=== PATIENT | male | born 1955 | race Caucasian/White ===

== ENCOUNTER 2017-10-31 06:51 | Inpatient (IN) | payer OTHER ==
[~2017-10-31] VITALS: Ht 188 cm; Wt 142.0 kg
[~2017-10-31 06:51] MED LIST: MELOXICAM PO; TYLENOL WITH C1 EAC1 PO
[2017-10-31] MEDS ORDERED: CEFAZOLIN SOD 2 GM/D5W 50ML 50 ML IV ONE (07:19)
[2017-10-31] MEDS ORDERED: GABAPENTIN 300 MG CAP ONE (07:19)
[2017-10-31] MEDS ORDERED: DEXAMETHASONE SOD PHOS 10 MG/1 ML VIAL ONE (07:19)
[2017-10-31] MEDS ORDERED: CELECOXIB 200 MG CAP PO ONE (07:29)
[2017-10-31] MEDS ORDERED: ROPIVACAINE 246.25 MG, EPINEPHRINE HCL 1:1000 0.5 MG, CLONIDINE HCL 0.08 MG, KETOROLAC ... INJ ONE ×5 (07:30)
[2017-10-31] MEDS ORDERED: MUPIROCIN 2% OINT 22 GM TUBE ONE (08:04)
[2017-10-31] MEDS ORDERED: TRANEXAMIC ACID 1,000 MG/10 ML ML ONE (08:04)
[2017-10-31] MEDS ORDERED: BACITRACIN 50,000 UNIT VIAL ONE (08:05)
[2017-10-31] MEDS: SODIUM CHLORIDE 0.9% 1000ML 1,000 ML IV SCH ×2 (10:52→20:52)
[2017-10-31] MEDS ORDERED: ACETAMINOPHEN 650 MG SUPP PR PRN (11:00)
[2017-10-31] MEDS ORDERED: HYDROCODONE/APAP 5MG-325MG TAB PO PRN (11:00)
[2017-10-31] MEDS ORDERED: DIPHENHYDRAMINE HCL INJ 50 MG/ML VIAL IM/IV PRN (11:00)
[2017-10-31] MEDS ORDERED: KETOROLAC TROMETHAMINE 30 MG/ML VIAL IV PRN (11:00)
[2017-10-31] MEDS ORDERED: ONDANSETRON HCL INJ 2 MG/ML VIAL IV PRN (11:00)
[2017-10-31] MEDS ORDERED: DOCUSATE SODIUM 100 MG CAP PO PRN (11:00)
[2017-10-31] MEDS ORDERED: PROMETHAZINE HCL (IM) 25 MG/ML VIAL IM PRN (11:00)
--- NOTE | 2017-10-31 11:45 | Operative Report ---
DATE OF PROCEDURE: October 31, 2017 TIRE MOLD ENGRAVER: Venkat Herman PA-C The patient was brought to the operating room for induction of anesthesia. Throughout this case, my PA's assistance was necessary for retraction of soft tissue and positioning of the extremity. This allows for efficient and technically successful execution of the operation and is considered medically necessary. PREOPERATIVE DIAGNOSIS: Osteoarthritis, left knee. POSTOPERATIVE DIAGNOSIS: Osteoarthritis, left knee. PROCEDURE: Left total knee arthroplasty. INDICATIONS: The patient is a 62-year-old gentleman who has advanced arthritis of both knees. He has failed extensive conservative management and wishes to proceed with a left total knee replacement. The risks and benefits, the implants, the recovery, and the added challenges due to his weight have been explained to the patient. He states he understands and wishes to proceed. DESCRIPTION OF PROCEDURE: The patient was brought to the operating room and placed under general anesthetic. He received prophylactic antibiotics, a regional block, and tranexamic acid in the holding area. His left lower extremity was prepped and draped in a sterile manner. Some added time and personnel was necessary due to the patient's weight of 280 pounds. His left lower extremity was exsanguinated and a proximal tourniquet was inflated to 350 mmHg. An anterior approach with a medial parapatellar arthrotomy was performed. Soft tissue releases were performed to bring the knee up into flexion with the patella everted. Meniscal remnants, marginal osteophytes in the remnants of the cruciate ligaments were excised. A Siegel and Nephew Deyanira II posterior stabilized knee system was used. An extramedullary cutting guide was used to resect the proximal tibia. A +2 cut was made due to the patient's flexion contracture and limited flexion. The tibial baseplate was a size #7. The central fin punch was impacted and attention was directed towards the distal femur. An intramedullary cutting guide was used to resect the distal femur in 6 degrees of valgus and rotation referenced off of a combination of landmarks including Brandon line, the epicondylar axis, and the posterior condyles. The femoral component was a size #8. The anterior and posterior chamfer cuts were made. Trial reductions were performed. An 11 mm ultra-congruent tibial insert provided optimal soft tissue balancing in flexion and extension. The patella was resurfaced with a 35 mm x 9 mm patellar button. The thickness of the patella was checked before and after resurfacing and was right at 25 mm. Patellar tracking was noted to be concentric. The trial implants were removed. A 100 mL premixed pericapsular KENYA injection was placed into the soft tissue. The knee was thoroughly irrigated with a Pulsavac. The components were cemented into place using a single mix of PALACOS cement, pre-loaded with gentamicin. Care was taken to remove extravasated cement. The wound was further irrigated with a shower-jet pulsatile lavage while the cement cured. The arthrotomy was then closed with interrupted #1 Ethibond. The knee was put through flexion and extension after each stitch to ensure a secure closure. The skin was closed with subcuticular Vicryl and miriam. A sterile bandage was applied. The patient was extubated and transported to the recovery room in stable condition. Blood loss was minimal. All needle and sponge counts were correct. Job#: [id number] IVON
[2017-10-31] MEDS: ACETAMINOPHEN 1000 MG/100 ML IV SCH ×2 (12:00→18:00)
--- NOTE | 2017-10-31 12:03 | Diagnostic Imaging Report ---
PROCEDURE:X-RAY LEFT KNEE, ONE OR TWO VIEWS COMPARISON:None. INDICATIONS:POST SURG KNEE FINDINGS: 2 portable views of the left knee (AP and crosstable lateral). Status post total left knee arthroplasty with intact prosthesis in adequate anatomic alignment. There is post-operative suprapatellar effusion, soft tissue swelling and gas. Multiple surgical skin miriam. No acute fracture-dislocation. No definite intra-osseous lesion. CONCLUSION:Status post total left knee arthroplasty with intact prosthesis in adequate anatomic alignment. Dictated by: Wilian Mccray M.D. on 10/31/2017 at 12:12 Electronically approved by: Wilian Mccray M.D. on 10/31/2017 at 12:12
[2017-10-31] MEDS ORDERED: CEFAZOLIN SOD 1 GM/NS 50ML 50 ML IV SCH (14:00)
[2017-10-31] MEDS: CELECOXIB 200 MG CAP PO SCH (17:00)
[2017-10-31] MEDS: CEFAZOLIN SOD 1 GM VIAL IV SCH (17:00)
[2017-10-31] MEDS ORDERED: SODIUM CHLORIDE 0.9% 50ML 50 ML ONE (17:16)
[2017-10-31] MEDS ORDERED: MORPHINE SULFATE INJ 10 MG/ML ONE (18:36)
[2017-10-31] MEDS ORDERED: MIDAZOLAM HCL 2 MG/2 ML VIAL ONE (18:36)
[2017-10-31] MEDS ORDERED: FENTANYL CITRATE/PF 100MCG/2 ML INJ ONE (18:36)
[2017-10-31] MEDS ORDERED: ONDANSETRON HCL INJ 2 MG/ML VIAL ONE (18:39)
[2017-10-31] MEDS ORDERED: LIDOCAINE HCL 2% LOCAL INJ 5 ML SDV VIAL INJ ONE (18:39)
[2017-10-31] MEDS ORDERED: SEVOFLURANE INHAL SOLN 250 ML PEN BTL ONE (18:39)
[2017-10-31] MEDS ORDERED: EPHEDRINE SULFATE INJ 50 MG/10 ML SYR ONE (18:39)
[2017-10-31] MEDS ORDERED: PROPOFOL IV EMULSION 10 MG/ML 20 ML VIAL ONE (18:39)
[2017-10-31] MEDS ORDERED: ACETAMINOPHEN 1000 MG/100 ML IV ONE (18:39)
[2017-10-31] MEDS: ASPIRIN 325 MG TAB PO SCH (18:41)
[2017-10-31 20:00] VITALS: BP 128/79
[2017-10-31] MEDS ORDERED: ZOLPIDEM TARTRATE 5 MG TAB PO PRN (21:00)
--- OUTSIDE RECORDS SUMMARY | 2017-10-31 22:21 | XMS REPORT ---
Author Author [facility] Address Unknown Phone Unavailable Care Team Providers Care Account Collector Name Role Phone AMADEO MAGAÑA Unavailable Unavailable Problems This patient has no known problems. Allergies, Adverse Reactions, Alerts This patient has no known allergies or adverse reactions. Medications This patient has no known medications. Results Test Description Test Time Test Comments Text Results Atomic Results Result Comments KNEE LEFT 1-2 VIEWS [place] [address] Patient Name: QIAN HALE MR #: [id number] : 1955 Age/Sex: 62/M Req # : [id number] Adm Physician: Ordered by: AMADEO MAGAÑA MD Report #: [id number] Location: OR Room/Bed: Procedure: [id number] DX/KNEE LEFT 1-2 VIEWS Exam Date: 10/31/17 Exam Time : 1100 REPORT STATUS: Signed PROCEDURE: X-RAY LEFT KNEE, ONE OR TWO VIEWS COMPARISON: None. INDICATIONS: POST SURG KNEE FINDINGS: 2 portable views of the left knee (AP and crosstable lateral). Status post total left knee arthroplasty with intact prosthesis in adequate anatomic alignment. There is post-operative suprapatellar effusion , soft tissue swelling and gas. Multiple surgical skin miriam. No acute fracture-dislocation. No definite intra-osseous lesion. CONCLUSION: Status post total left knee arthroplasty with intact prosthesis in adequate anatomic alignment. Dictated by: Kory Mccray M.D. on 10/31/2017 at 12 :12 Electronically approved by: Kory Mccray M.D. on 10/31/2017 at 12: 12 Dictated By: KORY MCCRAY MD 1212 Transcribed By: JAYSON on 10/31/17 1212 COPY TO: AMADEO MAGAÑA MD
[2017-10-31 22:48] VITALS: BP 110/69
[2017-11-01] VITALS (8 sets, daily range): BP systolic 110–131; BP diastolic 60–97
[2017-11-01] MEDS ORDERED: MELOXICAM7.5 MG PO (00:24)
[2017-11-01] MEDS: CEFAZOLIN SOD 1 GM VIAL IV SCH ×2 (00:46→08:48)
[2017-11-01] MEDS: ACETAMINOPHEN 1000 MG/100 ML IV SCH ×2 (00:46→05:35)
[2017-11-01] MEDS: SODIUM CHLORIDE 0.9% 1000ML 1,000 ML IV SCH (06:31)
[2017-11-01] MEDS: HYDROCODONE/APAP 7.5MG-325MG 1 EA TAB PO PRN ×3 (07:26→20:12)
[2017-11-01 08:16] LABS: HEMATOCRIT 36.4 % (38.2-49.6); HEMOGLOBIN 11.9 g/dL (14.0-18.0)
[2017-11-01] MEDS: ASPIRIN 325 MG TAB PO SCH ×2 (08:48→17:15)
[2017-11-01] MEDS: CELECOXIB 200 MG CAP PO SCH ×2 (08:48→17:15)
[2017-11-01] MEDS ORDERED: ACETAMINOPHEN 1000 MG/100 ML IV PRN (11:00)
[2017-11-01] MEDS ORDERED: ASPIRIN325 MG PO (11:02)
[2017-11-02] VITALS: BP 137/81
[2017-11-02 04:00] VITALS: BP 135/79
[2017-11-02] MEDS: HYDROCODONE/APAP 7.5MG-325MG 1 EA TAB PO PRN ×3 (08:19→17:09)
[2017-11-02 08:43] VITALS: BP 152/70
[2017-11-02 09:00] VITALS: BP 152/70
[2017-11-02] MEDS: ASPIRIN 325 MG TAB PO SCH ×2 (10:09→17:09)
[2017-11-02] MEDS: CELECOXIB 200 MG CAP PO SCH ×2 (10:10→17:09)
[2017-11-02 12:00] VITALS: BP 127/79
[2017-11-02 17:15] VITALS: BP 132/85
== END 2017-11-02 17:24 | disposition home health service (06) | DRG 470 ==
LOC: OR 06:51 → MED/SURG 22:18
PROVIDERS: ADMIT Specialist; ATTEND Specialist
PROC: 0SRD0JZ Replacement of Left Knee Joint with Synthetic Substitute, Open Approach (ICD-10-PCS; principal; 2017-10-31 09:00)
DX: M17.12 Unilateral primary osteoarthritis, left knee (principal); Z68.41 Body mass index [BMI] 40.0-44.9, adult; E66.01 Morbid (severe) obesity due to excess calories; D64.9 Anemia, unspecified
CPT/HCPCS: 36415; 85014; 85018; 86850; 86900; 86920; J0171; J0690; J1100; J1885; J2001; J2250; J2270; J2405; J2795

== ENCOUNTER 2018-03-13 08:18 | Observation (INO) | payer OTHER ==
[2018-03-10 10:28] LABS: BASOPHILS # (AUTO) 0.1 (0.0-0.1); BASOPHILS % 0.5 % (0.0-1.0); EOSINOPHILS # (AUTO) 0.1 (0.0-0.4); EOSINOPHILS % 1.3 % (0.0-6.0); HEMATOCRIT 41.2 % (38.2-49.6); HEMOGLOBIN 13.9 g/dL (14.0-18.0); LYMPHOCYTES # (AUTO) 1.3 (1.0-3.2); LYMPHOCYTES % 12.5 % (18.0-39.1); MEAN CORPUSCULAR HGB CONC 33.7 g/dL (31-35); MEAN CORPUSCULAR VOLUME 82.9 fL (81-99); MONOCYTES # (AUTO) 1.2 (0.2-0.8); MONOCYTES % 11.5 % (4.4-11.3); NEUTROPHILS # (AUTO) 7.9 (2.1-6.9); NEUTROPHILS % 73.9 % (38.7-80.0); PLATELET COUNT 249 x10e3/uL (140-360); RED BLOOD COUNT 4.97 x10e6/uL (4.3-5.7); RED CELL DISTRIBUTION WIDTH 13.9 % (11.7-14.4)
[~2018-03-13] VITALS: Ht 188 cm; Wt 133.0 kg
[~2018-03-13 08:18] MED LIST changes: +ASPIRIN325 MG PO; +MELOXICAM7.5 MG PO; +ROPIVACAINE 246.25 MG, EPINEPHRINE HCL 1:1000 0.5 MG, CLONIDINE HCL 0.08 MG, KETOROLAC ... IV ONE
[2018-03-13] MEDS ORDERED: DEXAMETHASONE SOD PHOS 10 MG/1 ML VIAL ONE (08:28)
[2018-03-13] MEDS ORDERED: CELECOXIB 200 MG CAP ONE (08:28)
[2018-03-13] MEDS ORDERED: CEFAZOLIN SOD 2 GM/D5W 50ML 50 ML IV ONE (08:29)
[2018-03-13] MEDS ORDERED: GABAPENTIN 300 MG CAP ONE (08:29)
[2018-03-13] MEDS ORDERED: BACITRACIN 50,000 UNIT VIAL ONE (09:45)
[2018-03-13] MEDS ORDERED: MUPIROCIN 2% OINT 22 GM TUBE ONE (09:45)
[2018-03-13] MEDS ORDERED: TRANEXAMIC ACID 1,000 MG/10 ML ML ONE (09:45)
[2018-03-13] MEDS ORDERED: DOCUSATE SODIUM 100 MG CAP PO PRN (11:45)
[2018-03-13] MEDS ORDERED: PROMETHAZINE HCL (IM) 25 MG/ML VIAL IM PRN (11:45)
[2018-03-13] MEDS ORDERED: HYDROCODONE/APAP 5MG-325MG TAB PO PRN (11:45)
[2018-03-13] MEDS ORDERED: DIPHENHYDRAMINE HCL INJ 50 MG/ML VIAL IM/IV PRN (11:45)
[2018-03-13] MEDS ORDERED: ONDANSETRON HCL INJ 2 MG/ML VIAL IV PRN (11:45)
[2018-03-13] MEDS ORDERED: ACETAMINOPHEN 650 MG SUPP PR PRN (11:45)
[2018-03-13] MEDS ORDERED: MEPERIDINE HCL INJ 50 MG/ML INJ ONE (12:08)
[2018-03-13] MEDS ORDERED: FENTANYL CITRATE/PF 100MCG/2 ML INJ ONE ×3 (12:31→17:46)
[2018-03-13] MEDS ORDERED: MORPHINE SULFATE 2 MG/ML SYR ONE ×2 (12:45→13:10)
[2018-03-13 13:00] VITALS: BP 105/64
--- NOTE | 2018-03-13 13:15 | Diagnostic Imaging Report ---
PROCEDURE:KNEE RIGHT 1-2 VIEWS TECHNIQUE:AP and lateral views right knee INDICATION:Postoperative evaluation COMPARISON:None. FINDINGS: See conclusion. CONCLUSION: 1. Total right knee arthroplasty intact and in anatomic alignment. 2. Expected regional postsurgical changes including joint gas and fluid, subcutaneous emphysema and edema, and surgical miriam. 3. No acute abnormality. Dictated by: Miguel Michel M.D. on 03/13/2018 at 13:18 Electronically approved by: Miguel Michel M.D. on 03/13/2018 at 13:18
[2018-03-13 13:40] VITALS: BP 105/64
[2018-03-13 14:00] VITALS: BP 105/64
[2018-03-13] MEDS ORDERED: CEFAZOLIN SOD 1 GM/D5W 50ML 50 ML IV SCH (14:00)
[2018-03-13] MEDS: SODIUM CHLORIDE 0.9% 1000ML 1,000 ML IV SCH ×2 (14:00→23:53)
[2018-03-13] MEDS: ACETAMINOPHEN 1000 MG/100 ML IV SCH ×3 (14:00→23:53)
[2018-03-13] MEDS ORDERED: tylenol #4 PO (14:38)
[2018-03-13 16:13] VITALS: BP 120/73
[2018-03-13] MEDS ORDERED: PROPOFOL IV EMULSION 10 MG/ML 20 ML VIAL ONE (17:14)
[2018-03-13] MEDS ORDERED: ONDANSETRON HCL INJ 2 MG/ML VIAL ONE (17:14)
[2018-03-13] MEDS ORDERED: SEVOFLURANE INHAL SOLN 250 ML PEN BTL ONE (17:14)
[2018-03-13] MEDS ORDERED: LIDOCAINE HCL 2% LOCAL INJ 5 ML SDV VIAL INJ ONE (17:14)
[2018-03-13] MEDS ORDERED: ROPIVACAINE 0.5% 5 MG/ML 30 ML SDV ONE (17:41)
[2018-03-13] MEDS ORDERED: LIDOCAINE 2% /EPINEPHRINE 20 ML SDV INJ ONE (17:41)
[2018-03-13] MEDS ORDERED: MIDAZOLAM HCL 2 MG/2 ML VIAL ONE (17:46)
[2018-03-13] MEDS: ASPIRIN 325 MG TAB PO SCH (18:30)
[2018-03-13] MEDS: KETOROLAC TROMETHAMINE 30 MG/ML VIAL IV PRN (18:30)
[2018-03-13] MEDS: CELECOXIB 100 MG CAP PO SCH (18:30)
[2018-03-13] MEDS: CEFAZOLIN SOD 1 GM VIAL IV SCH (18:30)
[2018-03-13 20:00] VITALS: BP 100/56
[2018-03-13] MEDS ORDERED: ZOLPIDEM TARTRATE 5 MG TAB PO PRN (21:00)
[2018-03-13] MEDS: HYDROCODONE/APAP 7.5MG-325MG 1 EA TAB PO PRN (23:54)
[2018-03-14] VITALS: BP 116/63
[2018-03-14] MEDS: KETOROLAC TROMETHAMINE 30 MG/ML VIAL IV PRN ×2 (00:36→07:23)
[2018-03-14] MEDS: CEFAZOLIN SOD 1 GM VIAL IV SCH ×2 (02:25→09:11)
[2018-03-14] MEDS: HYDROCODONE/APAP 7.5MG-325MG 1 EA TAB PO PRN ×3 (03:59→13:58)
[2018-03-14 04:00] VITALS: BP 113/67
[2018-03-14] MEDS: ACETAMINOPHEN 1000 MG/100 ML IV SCH (06:00)
[2018-03-14 06:36] LABS: HEMATOCRIT 32.4 % (38.2-49.6); HEMOGLOBIN 10.7 g/dL (14.0-18.0)
[2018-03-14 08:35] VITALS: BP 117/72
[2018-03-14] MEDS ORDERED: SENNA-S TABLET PO SCH (09:00)
[2018-03-14] MEDS: ASPIRIN 325 MG TAB PO SCH (09:10)
[2018-03-14] MEDS: CELECOXIB 100 MG CAP PO SCH (09:11)
--- NOTE | 2018-03-14 09:56 | Consultation ---
DATE OF CONSULTATION: REASON FOR CONSULTATION: Postop medical management. HISTORY OF PRESENT ILLNESS: The patient is a 62-year-old gentleman status post right total knee arthroplasty for long-standing osteoarthritis. He is doing very well postoperatively with minimal pain. REVIEW OF SYSTEMS: He complains of some constipation. Denies any chest pain, fever, chills, nausea, vomiting, headache, shortness of breath, or dizziness. PAST MEDICAL HISTORY: Significant for osteoarthritis. MEDICATIONS: See MAR. ALLERGIES: NONE. SOCIAL HISTORY: Nonsmoker and nondrinker. FAMILY HISTORY: Hypertension. PHYSICAL EXAMINATION VITALS: Temp 98.6, blood pressure 122/76, pulse 74, sats 98%. GENERAL: He is in no apparent distress laying in bed. NECK: Supple. CARDIOVASCULAR: Regular rate and rhythm. LUNGS: Clear to auscultation bilaterally. ABDOMEN: Good bowel sounds. Soft and nontender. EXTREMITIES: No clubbing or cyanosis. NEUROLOGIC: Nonfocal. ASSESSMENT AND PLAN 1. Constipation: Will put him on a stool softener. 2. Osteoarthritis: Will continue with his medication. 3. Right knee pain: Will continue with physical therapy. 4. Anemia: Will check a CBC. Please see hospital chart for full details. Job#: [id number] FABRICE
--- NOTE | 2018-03-14 10:31 | Operative Report ---
DATE OF PROCEDURE: March 13, 2018 TECHNICAL SERVICES MANAGER: Venkat Herman PA-C The patient was brought to the operating room for induction of anesthesia. Throughout this case, my PA's assistance was necessary for retraction of soft tissue and positioning of the extremity. This allows for efficient and technically successful execution of the operation and is considered medically necessary. PREOPERATIVE DIAGNOSIS: Osteoarthritis, right knee. POSTOPERATIVE DIAGNOSIS: Osteoarthritis, right knee. PROCEDURE: Right total knee arthroplasty. INDICATIONS: The patient is a 62-year-old gentleman with end-stage arthritis in his right knee. He has failed conservative management and would like to proceed with a right total knee replacement. The risks and benefits of the procedure have been discussed. The added challenges due to his weight of nearly 300 pounds have been explained. He states he understands and wishes to proceed. DESCRIPTION OF PROCEDURE: The patient was brought to the operating room and placed under general anesthetic. He received prophylactic antibiotics, a regional block and tranexamic acid in the holding area. His right lower extremity was prepped and draped in a sterile manner. A preoperative time out was performed. The extremity was exsanguinated, and a proximal tourniquet was inflated to 350 mmHg. A standard anterior approach with a medial parapatellar arthrotomy was performed. Soft-tissue releases were performed to bring the knee up into flexion with the patella everted. Complete loss of articular cartilage was noted. The cruciate ligaments, meniscal remnants and marginal osteophytes were all removed. A Siegel and Nephew Deyanira II posterior stabilized knee system was used throughout the case. An extramedullary cutting guide was used to resect the proximal tibia. The knee was quite tight. The tibial baseplate was noted to be a size number 7. The central fin punch was impacted, and attention was directed towards the distal femur. An intramedullary cutting guide was used to resect the distal femur in 6 degrees of valgus and rotation referencing off of a combination of landmarks including Brandon's line, the epicondylar axis and the posterior condyles. The femoral component was a size number 8. The anterior and posterior cuts were made. Trial reductions were performed. A 9-mm ultracongruent tibial insert provided optimal soft-tissue balancing in flexion and extension. The patella was resurfaced with a 35-mm x 9-mm patellar button. The thickness was checked before and after and was right around 25 mm. Patellar tracking was noted to be concentric. The trial implants were then all removed. A 100-mL premixed pericapsular injection was placed into the surrounding soft tissue. The knee was thoroughly irrigated with a shower-tip pulsatile lavage. The components were cemented into place using a single mix of Palacos cement preloaded with antibiotics. Care was taken to remove extravasated cement. The wound was further irrigated while the cement cured. The arthrotomy was then closed with interrupted #1 Ethibond. The knee was put through flexion and extension to ensure a secure closure. The skin was closed with subcuticular Vicryl and miriam. A sterile bandage was applied. The patient was extubated and transported to the recovery room in stable condition. Blood loss was minimal. All needle and sponge counts were correct. Job#: [id number]
[2018-03-14 11:13] VITALS: BP 117/72
[2018-03-14] MEDS ORDERED: ACETAMINOPHEN 1000 MG/100 ML IV PRN (11:45)
[2018-03-14 12:02] VITALS: BP 147/76
--- NOTE | 2018-03-14 15:29 | Discharge Summary ---
CHIEF COMPLAINT: Right knee pain. HISTORY OF PRESENT ILLNESS: This patient is a 62-year-old male who complains of right knee pain for many years. He has already been through a left total knee replacement. His x-rays are consistent with end-stage osteoarthritis of the right knee. He feels he has failed conservative management and would like to proceed with more aggressive intervention. He states he is happy with his left knee replacement and now wants to proceed with a right total knee replacement. The risks and benefits of the procedure were reviewed. The patient states he understands and wishes to proceed. HOSPITAL COURSE: Patient underwent a right total knee replacement without complications. He was then transferred to the recovery room and the floor in stable condition. He progressed nicely with physical therapy. He used his CPM in the hospital. He remained medically stable. He was able to be discharged home on postop day 1. PRINCIPAL DIAGNOSIS: Osteoarthritis of the right knee. PRINCIPAL PROCEDURE: Right total knee replacement. DISCHARGE INSTRUCTIONS: The patient was discharged home with home health and physical therapy arranged. He was to continue using the CPM as he did in the hospital. He was to resume his home medications as directed. He was to take aspirin twice a day for thromboprophylaxis. He was instructed to follow up in our office in roughly 8 to 10 days. Dictated by Venkat Herman PA-C. AMADEO MAGAÑA MD Job#: [id number]
[2018-03-14] MEDS ORDERED: CELECOXIB 200 MG CAP PO SCH (17:00)
== END 2018-03-14 16:28 | disposition home health service (06) ==
LOC: OR 08:18 → PACU V 11:47 → MED/SURG 14:02
PROVIDERS: ADMIT Specialist; ATTEND Specialist
DX: M17.11 Unilateral primary osteoarthritis, right knee (principal); Z96.652 Presence of left artificial knee joint; K59.00 Constipation, unspecified; D64.9 Anemia, unspecified; Z82.49 Family history of ischemic heart disease and other diseases of the circulatory system
CPT/HCPCS: 27447; 36415 ×2; 73560; 85014; 85018; 85025; 86850; 86900; 86920; 93005; 97110; 97116 ×2; 97161; C1713; G0378 ×2; G8978; G8979; J0171; J0690 ×2; J1100; J1885 ×2; J2001 ×2; J2175; J2250; J2270; J2405; J2795; J7030